=== PATIENT | female | born 1995 | race Caucasian/White ===

== ENCOUNTER 2017-10-10 19:20 | Emergency (ER) | payer OTHER ==
[~2017-10-10] VITALS: Ht 160 cm; Wt 77.3 kg
[2017-10-10] MEDS ORDERED: IBUPROFEN 400 MG TABLET PO ONE (21:00)
[2017-10-10 22:08] VITALS: BP 110/71
== END 2017-10-10 22:11 | disposition home or self-care (01) ==
LOC: EMS 19:22
DX: S20.211A Contusion of right front wall of thorax, initial encounter (principal); Z88.0 Allergy status to penicillin; W20.8XXA Other cause of strike by thrown, projected or falling object, initial encounter; Y93.89 Activity, other specified; Y92.89 Other specified places as the place of occurrence of the external cause; Y99.8 Other external cause status
CPT/HCPCS: 99283